=== PATIENT | female | born 1975 | race American Indian/Alaskan Native ===

== ENCOUNTER 2019-08-20 15:15 | Emergency (ER) | payer OTHER ==
[~2019-08-20] VITALS: Ht 170.2 cm; Wt 77.1 kg
[~2019-08-20 15:15] MED LIST: ADVIL LIQUI-GE200 MG PO; LEVOTHYROXINE50 MCG PO; NORCO 10-325 T1 EACH PO; NORCO 5-325 TA1 EACH PO; PERCOCET 5-3251 EACH PO; ULTRAM50 MG PO
== END 2019-08-20 16:10 | disposition home or self-care (01) ==
LOC: ED 15:15
DX: S01.81XA Laceration without foreign body of other part of head, initial encounter (principal); E03.9 Hypothyroidism, unspecified; F17.200 Nicotine dependence, unspecified, uncomplicated; Z88.0 Allergy status to penicillin; Z79.899 Other long term (current) drug therapy; W22.8XXA Striking against or struck by other objects, initial encounter
CPT/HCPCS: 12013; 99282-25

== ENCOUNTER 2022-05-01 13:25 | Emergency (ER) | payer SELFPAY ==
[~2022-05-01] VITALS: Ht 170.2 cm; Wt 77.1 kg
[2022-05-01] MEDS ORDERED: PSEUDOEPHEDRINE30 MG PO (14:14)
[2022-05-01] MEDS ORDERED: DOXYCYCLINE HY100 MG PO (14:14)
== END 2022-05-01 14:26 | disposition home or self-care (01) ==
LOC: ED 13:25
DX: J32.0 Chronic maxillary sinusitis (principal); E03.9 Hypothyroidism, unspecified; F17.210 Nicotine dependence, cigarettes, uncomplicated; Z79.899 Other long term (current) drug therapy
CPT/HCPCS: 87502; 99283; U0003